=== PATIENT | male | born 1960 | race Caucasian/White ===

== ENCOUNTER 2017-07-03 20:00 | Emergency (ER) | payer OTHER ==
[2017-07-03] MEDS ORDERED: CHLORTHALIDONE25 M1 PO (20:10)
[2017-07-03] MEDS ORDERED: KEFLEX500 M1 PO (20:10)
[2017-07-03] MEDS ORDERED: ASPIRIN81 M4 PO (20:10)
[2017-07-03] MEDS ORDERED: VITAMIN D250000 UNIT PO (20:11)
[2017-07-03] MEDS ORDERED: CIALIS10 M1 PO (20:11)
[2017-07-03] MEDS ORDERED: VENLAFAXINE HC150 M1 PO (20:11)
--- NOTE | 2017-07-03 21:22 | ED GENERAL ADULT ---
History of Present Illness General Chief Complaint: General Adult Stated Complaint: DIAGNOSED W CELLULITIS, HAS RED STREAKS ON LEG Source: patient Exam Limitations: no limitations Vital Signs & Intake/Output Vital Signs & Intake/Output Vital Signs Date Time Temp Pulse Resp B/P B/P Pulse O2 O2 Flow FiO2 Mean Ox Delivery Rate 07/03 2222 99.0 77 16 117/71 97 Room Air 07/03 2011 98.0 88 20 136/82 Allergies Coded Allergies: No Known Allergies (07/03/17) Reconcile Medications Amoxicillin/Potassium Clav (Augmentin 875-125 Tablet) 875 MG-125 MG TABLET 1 TAB PO BID CELLULITIS Aspirin (Aspirin*) 81 MG TAB.CHEW 1 TAB PO DAILY HEART (Reported) Cephalexin (Keflex) 500 MG CAPSULE 1 CAP PO TID INFEXCTION (Reported) Chlorthalidone 25 MG TABLET 1 TAB PO DAILY UNK (Reported) Ergocalciferol (Vitamin D2) (Vitamin D2) 50,000 UNIT CAPSULE 1 CAP PO QW VITAMIN (Reported) Ibuprofen 800 MG TABLET 1 TAB PO TID PRN PAIN Tadalafil (Cialis) 10 MG TABLET 1 TAB PO DAILY ED (Reported) Venlafaxine HCl (Venlafaxine HCl ER) 150 MG TAB.ER.24 1 TAB PO DAILY ANXIETY (Reported) Triage Note: PER PT SEEN AT [facility] WEDNESDAY NIGHT FOR RED RT ANKLE GIVEN KEFLEX TID, PER PT NOT GETTING BETTER. RT ANKLE MEDIAL MALLULOUS SL RED, MINIMAL SWELLING PER PT MUCH WORSE, ALSO PAINFUL Triage Nurses Notes Reviewed? yes Onset: Abrupt Duration: day(s): (3), constant, continues in ED, getting worse Timing: single episode today Severity: moderate, severe Severity Numbers: 8 No Modifying Factors: none HPI: 57-year-old male past medical history of anxiety presents for evaluation of cellulitis to his right lateral ankle. Patient states he first noticed redness and swelling in the area about 3 or 4 days ago. He went to an urgent care when it first started and was placed on cephalexin 3 times per day. Patient states that he's been on this for 3 days now without any improvement. He feels like the redness is spreading. No fever he feels well otherwise. There is no trauma to the ankle. He is not a diabetic swelling or pain. No recent surgery or trauma no history of DVT. He is not taking any medicine for pain. He states that he is able to walk but that makes the pain worse. He rates the pain as an 8 out of 10 with movement. No numbness or tingling no other joint swelling or pain. No previous history of cellulitis in this area. (Taj Jarrell) Past History Travel History Traveled to [place] past 21 day No Medical History Any Pertinent Medical History? see below for history Neurological: NONE EENT: NONE Cardiovascular: NONE Respiratory: NONE Gastrointestinal: NONE Hepatic: NONE Renal: NONE Musculoskeletal: NONE Psychiatric: anxiety Endocrine: NONE Surgical History Surgical History: non-contributory Psychosocial History What is your primary language Ivorian Tobacco Use: Never used Family History Hx Contributory? No (Taj Jarrell) Review of Systems Review of Systems Constitutional: Reports: no symptoms. EENTM: Reports: no symptoms. Respiratory: Reports: no symptoms. Cardiovascular: Reports: no symptoms. GI: Reports: no symptoms. Genitourinary: Reports: no symptoms. Musculoskeletal: Reports: joint pain, joint swelling. Skin: Reports: see HPI, erythema. Neurological/Psychological: Reports: no symptoms. Hematologic/Endocrine: Reports: no symptoms. Immunologic/Allergic: Reports: no symptoms. All Other Systems: Reviewed and Negative (Taj Jarrell) Physical Exam Physical Exam General Appearance: well developed/nourished, no apparent distress, alert, awake Head: atraumatic, normal appearance Eyes: Bilateral: normal appearance, EOMI. Ears, Nose, Throat: hearing grossly normal Neck: normal inspection, supple, full range of motion Respiratory: normal breath sounds, chest non-tender, no respiratory distress, lungs clear Cardiovascular: regular rate/rhythm, normal peripheral pulses Peripheral Pulses: 2+ radial (R), 2+ radial (L), 2+ tibialis posterior (R), 2+ tibialis posterior ( L), 2+ dorsalis pedis (R), 2+ dorsalis pedis (L) Back: normal inspection, normal range of motion Extremities: normal range of motion, there is pain and swelling around the right ankle lateral malleolus. there is faint erythema that covers the lateral malleolus and extends slightly into the distal lower leg. No focal fluctuant areas. No open wounds or sores. No discharge form range of motion of the extremity is intact. Neurovascular supply is intact. No other joint swelling patient is able to walk and bear weight Neurologic/Psych: no motor/sensory deficits, awake, alert, oriented x 3, normal gait, normal mood/affect Skin: intact, normal color, warm/dry Core Measures ACS in differential dx? No CVA/TIA Diagnosis: No Sepsis Present: No Sepsis Focused Exam Completed? No (Yassine NELSON,Taj) Progress Differential Diagnoses I considered the following diagnoses in my evaluation of the patient: [ Cellulitis, abscess, gout, septic arthritis, bursitis, sepsis, contact dermatitis, sprain, fracture, osteomyelitis] Plan of Care: Orders Procedure Date/time Status BLOOD CULTURE 07/03 2047 Active LACTIC ACID 07/03 2047 Complete COMPREHENSIVE METABOLIC PANEL 07/03 2047 Complete CBC WITHOUT DIFFERENTIAL 07/03 2047 Complete Laboratory Tests 07/03/172104: Anion Gap 16, Estimated GFR > 60, BUN/Creatinine Ratio 18.8, Glucose 110 H, Lactic Acid 1.6, Calcium 9.1, Total Bilirubin 0.2, AST 24, ALT 31, Alkaline Phosphatase 127 H, Total Protein 7.0, Albumin 4.1, Globulin 2.9, Albumin/ Globulin Ratio 1.4, CBC w Diff NO MAN DIFF REQ, RBC 4.56 L, MCV 86.3, MCH 28.8, MCHC 33.3, RDW 12.9, MPV 8.1, Gran % 59.7, Lymphocytes % 27.1, Monocytes % 10.2 H, Eosinophils % 1.9, Basophils % 1.1, Absolute Granulocytes 4.9, Absolute Lymphocytes 2.2, Absolute Monocytes 0.8 H, Absolute Eosinophils 0.2, Absolute Basophils 0.1 Microbiology 07/03 2113 BLOOD: Blood Culture - RECD 07/03 2104 BLOOD: Blood Culture - RECD Patient seen and evaluated. He has what appears to be cellulitis to the right lateral ankle. The erythema is faint and does not appear to be any lymphatic streaking. No focal fluctuant areas or abscess. Patient is not a diabetic he does not take immunosuppressants. He appears clinically well. He is afebrile. Obtained blood work does not show an elevated white blood cell count. X-ray is clear. Patient has been taking cephalexin 3 times a day for 3 days without improvement. Patient was given a dose of Unasyn in the emergency department. A min was made around the area of erythema. Discussed with patient about treatment options including staying for IV antibiotics versus a trial on Augmentin as an outpatient. Patient elects outpatient treatment. Due to normal labs and lack of significant comorbidities and clinical appearance of the cellulitis and patient outpatient treatment is reasonable for now. Patient will be instructed to stop cephalexin and start Augmentin. Advised him to monitor the area closely. If the redness continues to spread does not improve. If he has fever or any other concerns return to emergency Department immediately for IV antibiotics. Patient is nontoxic-appearing and agrees the plan. Diagnostic Imaging: Viewed by Me: Radiology Read. Discussed w/RAD: Radiology Read. Radiology Impression: PATIENT: YAMINI UNDERWOOD PRESENT AGE: 57 PATIENT ACCOUNT NO: [id number] : 60 LOCATION: [facility] ORDERING PHYSICIAN: Taj NELSON SERVICE DATE: 07/03/17 EXAM TYPE: RAD - XRY- ANKLE 3 OR MORE VIEWS R EXAMINATION: XR ANKLE, RIGHT CLINICAL INFORMATION: Pain, swelling, redness of the right ankle COMPARISON: None TECHNIQUE: AP, lateral, and mortise views of the right ankle. FINDINGS: The talar dome is intact. Ankle mortise is congruent. No acute fracture or subluxation. No radiopaque foreign body. No significant effusion. IMPRESSION: Normal right ankle series. DICTATED BY: Gosia Landrum MD DATE/TIME DICTATED:07/03/172144 CAMPUS ADMINISTRATIVE ASSISTANT:BLANKA DATE/TIME TRANSCRIBED:07/03/172144 Initial ED EKG: none (Taj Jarrell) Departure Departure Disposition: HOME OR SELF CARE Condition: Stable Clinical Impression Primary Impression: Cellulitis Qualifiers: Site of cellulitis: extremity Site of cellulitis of extremity: lower extremity Laterality: right Qualified Code: L03.115 - Cellulitis of right lower limb Referrals: Patient Has No Primary Care Dr (PCP/Family) Additional Instructions: Rest, avoid excessive physical activity. Keep the foot elevated wear Cj wrap. Stop taking cephalexin and start Augmentin. Use ibuprofen 800 mg every 8 hours with food as needed for pain and swelling. Monitor symptoms closely. If he notices spreading redness worsening swelling fever or any other concerns return immediately for IV antibiotics. Otherwise make a follow-up appointment with her primary care doctor for this coming week. Departure Forms: Customer Survey General Discharge Information Prescriptions: Current Visit Scripts Amoxicillin/Potassium Clav (Augmentin 875-125 Tablet) 1 TAB PO BID #20 TAB Ibuprofen 1 TAB PO TID PRN PAIN #30 TAB (Taj Jarrell) PA/ASBESTOS COVERER Co-Sign Statement Statement: ED Attending supervision documentation- [] I saw and evaluated the patient. I have also reviewed all the pertinent lab results and diagnostic results. I agree with the findings and the plan of care as documented in the PA's/ASBESTOS COVERER's documentation. [X] I have reviewed the ED Record and agree with the PA's/ASBESTOS COVERER's documentation. [] Additions or exceptions (if any) to the PAs/ASBESTOS COVERER's note and plan are summarized below: [] (Cornell AGRAWAL,Randee) Critical Care Note Critical Care Note Critical Care Time: non-applicable (Taj Jarrell)
[2017-07-03 21:24] LABS: ABSOLUTE BASOPHIL COUNT 0.1 /CUMM (0.0-0.2); ABSOLUTE EOSINOPHIL COUNT 0.2 /CUMM (0.0-0.7); ABSOLUTE GRANULOCYTE CT 4.9 /CUMM (1.4-6.5); ABSOLUTE LYMPH COUNT 2.2 /CUMM (1.2-3.4); ABSOLUTE MONOCYTE COUNT 0.8 /CUMM (0.10-0.60); BASOPHIL % 1.1 % (0.0-2.0); EOSINOPHIL % 1.9 % (0-5); GRANULOCYTE % 59.7 % (42.2-75.2); HEMATOCRIT 39.4 % (42-52); MEAN CORPUSCULAR HGB 28.8 PG (27.0-31.0); MEAN CORPUSCULAR HGB CONC 33.3 G/DL (33.0-37.0); MEAN CORPUSCULAR VOLUME 86.3 FL (80.0-94.0); MEAN PLATELET VOLUME 8.1 FL (7.4-10.4); PLATELET COUNT 314 /CUMM (130-400); RBC DISTRIBUTION WIDTH 12.9 % (11.5-14.5); RED BLOOD CELL CT 4.56 /CUMM (4.70-6.10); WHITE BLOOD CELL COUNT 8.3 /CUMM (4.8-10.8)
--- NOTE | 2017-07-03 21:50 | RADIOLOGY REPORT ---
EXAMINATION: XR ANKLE, RIGHT CLINICAL INFORMATION: Pain, swelling, redness of the right ankle COMPARISON: None TECHNIQUE: AP, lateral, and mortise views of the right ankle. FINDINGS: The talar dome is intact. Ankle mortise is congruent. No acute fracture or subluxation. No radiopaque foreign body. No significant effusion. IMPRESSION: Normal right ankle series.
[2017-07-03 22:23] VITALS: BP 117/71
[2017-07-03] MEDS ORDERED: IBUPROFEN800 M1 PO (22:27)
[2017-07-03] MEDS ORDERED: AUGMENTIN 875-1 EACH PO (22:27)
== END 2017-07-03 22:35 ==
LOC: ERH 20:00
PROVIDERS: Physician Assistant Medical
DX: L03.115 Cellulitis of right lower limb (principal)
CPT/HCPCS: 73610-RT; 87040; 96374